=== PATIENT | female | born 1985 | race Caucasian/White ===

== ENCOUNTER 2020-05-16 11:57 | Inpatient (IN) | payer OTHER ==
--- NOTE | 2020-05-16 12:18 | BHS.RME ---
Substance Use & Tx History - Substance Use History Alcohol Substance amount: 1 litre of vodak Frequency of use: Daily Substance route: Oral Date of Last Use: 05/15/20 Heroin Substance amount: 5 bags Frequency of use: Less than 3 times per week Substance route: Injection (ex: intravenous or skin popping) Date of Last Use: 05/09/20 - Last Treatment Date of last treatment: [place] Where was last treatment: Detox Physical/Psych/Mental Status - Behavior Eye Contact: Normal - Cooperativeness Cooperativeness: Cooperative - Thinking Thought Processes: Logical Thought content: Future oriented - Physical Health Problems Is patient presently having any pain?: No Does patient presently have any injuries (include location): No Does patient currently have a fever: No CIWA Nausea/Vomitin Muscle Tremors: 3 Anxiety: 2 Agitation: 3 Paroxysmal Sweats: 1-Minimal Palms Moist Orientation: 0-Oriented Tacttile Disturbances: 1-Very Mild Itch/Numbness Auditory Disturbances: 0-None Visual Disturbances: 0-None Headache: 2-Mild CIWA-Ar Total Score: 15
--- NOTE | 2020-05-16 12:39 | HP ---
CIWA Score Nausea/Vomitin Muscle Tremors: 3 Anxiety: 2 Agitation: 3 Paroxysmal Sweats: 1-Minimal Palms Moist Orientation: 0-Oriented Tacttile Disturbances: 1-Very Mild Itch/Numbness Auditory Disturbances: 0-None Visual Disturbances: 0-None Headache: 2-Mild CIWA-Ar Total Score: 15 - Admission Criteria OASAS Guidelines: Admission for Medically Managed Detox: Requires at least one of the followin. CIWA greater than 12 2. Seizures within the past 24 hours 3. Delirium tremens within the past 24 hours 4. Hallucinations within the past 24 hours 5. Acute intervention needed for co occurring medical disorder 6. Acute intervention needed for co occurring psychiatric disorder 7. Severe withdrawal that cannot be handled at a lower level of care (continued vomiting, continued diarrhea, abnormal vital signs) requiring intravenous medication and/or fluids 8. Admitting History and Physical - Admission Chief Complaint: i need help to stop drinking alcohol History of Present Illness: this 34 years old female with alcohol dependence,heroin abused,mmtp 40 mgs/day,seen in [place] last night receiving librium,zyprexa and seroquel,clear to come in for detox,unable to verify methadone program denied suicidal,denied homicidal History Source: Patient Limitations to Obtaining History: No Limitations - Past Medical History ...LMP: 10/06/19 ...: No Psych: Yes: Addictions, Bipolar, Depression - Smoking History Smoking history: Never smoked - Alcohol/Substance Use Hx Alcohol Use: Yes History of Substance Use: reports: Heroin - Social History Usual Living Arrangement: Yes: With Significant Other Do you think of yourself as: Straight/Heterosexual ADL: Support Services Occupation: unemployed History of Recent Travel: No Other 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,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,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 Admission ROS [facility] - [facility] Chief Complaint: i need help to stop drinking alcohol and using drug Allergies/Adverse Reactions: Allergies Allergy/AdvReac Type Severity Reaction Status Date / Time haloperidol [From Haldol] Allergy Verified 05/16/20 12:46 History of Present Illness: this 34 years old female with alcohol dependence,heroin abused,on methadone maintenance 40 mgs/day, last medicated not sure stated 3 days ago, seen in [facility] yesterday ,clear to come in for detox last detox 2016 in [place] denied suicidal and homicidal at this present time living with other significant,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 Loss EENT: reports: Nose Congestion Respiratory: reports: No Symptoms reported Cardiac: reports: No Symptoms Reported GI: reports: Nausea, Poor Appetite, Abdominal cramping : reports: No Symptoms Reported Musculoskeletal: reports: Back Pain, Muscle Pain Integumentary: reports: Dryness Neuro: reports: Headache, Tremors Endocrine: reports: No Symptoms Reported Hematology: reports: No Symptoms Reported Psychiatric: reports: No Sypmtoms Reported, Judgement Intact, Mood/Affect Appropiate, Orientated x3, other (bipolar disorder depression) Patient History - Patient Medical History Hx Anemia: No Hx Asthma: No Hx Chronic Obstructive Pulmonary Disease (COPD): No Hx Cancer: No Hx Cardiac Disorders: No Hx Congestive Heart Failure: No Hx Hypertension: No Hx Hypercholesterolemia: No Hx Pacemaker: No HX Cerebrovascular Accident: No Hx Seizures: No Hx Dementia: No Hx Diabetes: No Hx Gastrointestinal Disorders: No Hx Liver Disease: No Hx Genitourinary Disorders: No Hx Sexually Transmitted Disorders: No Hx Renal Disease (ESRD): No Hx Thyroid Disease: No Hx Human Immunodeficiency Virus (HIV): No (last 2009 negative) Hx Hepatitis C: No Hx Depression: Yes Hx Suicide Attempt: Yes ([place] 5 years ago) Hx Bipolar Disorder: Yes Hx Schizophrenia: No Other Medical History: denied suicidal,denied homicidal - Patient Surgical History Past Surgical History: No - PPD History Previous Implant?: Yes Documented Results: Negative w/o proof Implanted On Prior R Admission?: No PPD to be Administered?: Yes - Reproductive History Patient is a Female of Child Bearing Age (11 -55 yrs old): Yes Last Menstrual Period: 10/06/19 Patient : No - Smoking Cessation Smoking history: Never smoked - Substance & Tx. History Hx Alcohol Use: Yes Substance Use Type: Alcohol, Heroin Hx Substance Use Treatment: Yes (2016 [facility] ) - Substances abused Alcohol Substance route: Oral Frequency: Daily Amount used: 1 litre of vodka Age of first use: 14 Date of last use: 05/15/20 Heroin Substance route: Injection Frequency: 3-6 times per week Amount used: 5 bags Age of first use: 14 Date of last use: 05/13/20 Admission Physical Exam [facility] - Vital Signs Vital Signs: t 98,p 104,r 18,bp 142/94,wyatt 0.00,pulse ox 100% - Physical General Appearance: Yes: Moderate Distress, Tremorous, Irritable, Sweating, Anxious HEENTM: Yes: Normal ENT Inspection, ELVIS, Pharynx Normal Respiratory: Yes: Within Normal Limits, Lungs Clear, Normal Breath Sounds Neck: Yes: Within Normal Limits, Supple, Trachea in good position Breast: Yes: Breast Exam Deferred Cardiology: Yes: Within Normal Limits, Regular Rhythm, Regular Rate, S1, S2 Abdominal: Yes: Within Normal Limits, Normal Bowel Sounds, Non Tender, Flat, Sof t Genitourinary: Yes: Within Normal Limits Back: Yes: Muscle Spasm Musculoskeletal: Yes: Back pain, Muscle Pain Extremities: Yes: Normal Range of Motion, Tremors Neurological: Yes: 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 NML intact, Alert, Motor Strength 5/5 Integumentary: Yes: Dry Lymphatic: Yes: Within Normal Limits - Diagnostic (1) Alcohol dependence with uncomplicated withdrawal Current Visit: Yes Status: Acute (2) Heroin abuse Current Visit: Yes Status: Acute (3) Methadone maintenance therapy patient Current Visit: Yes Status: Acute (4) Bipolar disorder Current Visit: Yes Status: Acute (5) Depression Current Visit: Yes Status: Acute (6) Dehydration Current Visit: Yes Status: Acute Cleared for Admission [facility] - Detox or Rehab [facility] Level of Care: Medically Managed Detox Regimen/Protocol: Librium Inpatient Rehab Admission - Rehab Decision to Admit Inpatient rehab admission?: No
[2020-05-16] MEDS ORDERED: ACETAMINOPHEN 325 MG TABLET (FP) PO PRN ×2 (13:11)
[2020-05-16] MEDS ORDERED: MAGNESIUM CITRATE 300 ML BOTTLE PO PRN (13:11)
[2020-05-16] MEDS ORDERED: MAG HYDROX/AL HYDROX/SIMETH 30 ML UNIT-DOSE CUP PO PRN (13:11)
[2020-05-16] MEDS ORDERED: BISMUTH SUBSALICYLATE 524 MG/30 ML UD PO PRN (13:11)
[2020-05-16] MEDS ORDERED: MAGNESIUM HYDROX 2400MG/30ML ORAL SUSPENSION 30 ML CUP PO PRN (13:11)
[2020-05-16] MEDS ORDERED: MENTHOL/PHENOL 1 EACH UD MM PRN (13:11)
[2020-05-16] MEDS ORDERED: IBUPROFEN 400 MG TABLET (FP) PO PRN (13:11)
[2020-05-16 13:24] VITALS: BMI 16.0
[2020-05-16] MEDS ORDERED: QUEtiapine FUMARATE 50 MG TABLET PO ONE (13:43)
[2020-05-16] MEDS ORDERED: METHADONE HCL 10 MG TABLET PO ONE (13:45)
[2020-05-16] MEDS ORDERED: ONDANSETRON *ODT* 4 MG TABLET SL ONE (13:45)
--- NOTE | 2020-05-16 14:05 | CONSULT ---
[facility] Psychiatric Consult - Data Date of interview: 05/16/20 Admission source: [facility] Identifying data: Patient is a 34 year old single female, without children, unemployed, domiciled, and is supported by food stamps. This is one of multiple admissions for patient. Patient admitted to for alcohol dependence. Substance Abuse History: Substance & Tx. History. Hx Alcohol Use: Yes. Substance Use Type: Alcohol, Heroin. Hx Substance Use Treatment: Yes ([address] [place] [address]). - Substances abused. Alcohol. Substance route: Oral. Frequency: Daily. Amount used: 1 litre of vodka. Age of first use: 14. Date of last use: 05/15/20. Heroin. Substance route: Injection. Frequency: 3-6 times per week. Amount used: 5 bags. Age of first use: 14. Date of last use: 05/13/20 Medical History: denies. Psychiatric History: Patient seen in [facility] this afternoon due to reporting suicidal ideation while at [facility] yesterday. Patient's first psychiatric contact was at 16 years of age after she was admitted to a psychiatric unit in [facility] due to mood instability (manic behavior). She was diagnosed with Bipolar I disorder and treated with psychotropic medications. Ms. Caro reports additional hospitalizations at [facility] [place] + at facilities in [facility]. Ms. Caro most recent psychiatric hospitalization was approximately two years ago at a facility in [facility] due to mood instability. History of one suicide attempt via cutting at 15 years of age. Patient states that she is currently provided with outpatient psychiatric care at the [facility] and is prescribed Zyprexa 15mg HS + Seroquel 100mg + [place] 300mg BID. Reports not taking lithium for several weeks. Patient received zyprexa and seroquel at [facility] yesterday alth ough doses were not printed on discharge sheet ( patient states she received zyprexa 15mg HS + Seroquel 100mg HS). At present, Ms. Caro presents as restless and was reported by staff in [facility] that patient was highly agitated earlier. Patient denies suicidal/ homicidal ideation. Physical/Sexual Abuse/Trauma History: Not discussed. Mental Status Exam - Mental Status Exam Alert and Oriented to: Time, Place, Person Cognitive Function: Good Patient Appearance: Well Groomed Mood: Withdrawn, Anxious Affect: Mood Congruent Patient Behavior: Cooperative Speech Pattern: Appropriate Voice Loudness: Normal Thought Process: Goal Oriented Hallucinations: Denies Suicidal Ideation: Denies Homicidal Ideation: Denies Insight/Judgement: Poor Sleep: Poorly Appetite: Fair Muscle strength/Tone: Normal Gait/Station: Normal Psychiatric Findings - Problem List ([place] 1, 2,3) (1) Substance induced mood disorder Status: Acute (2) Alcohol dependence with uncomplicated withdrawal Status: Chronic (3) Bipolar disorder Status: Chronic (4) Methadone maintenance therapy patient Status: Chronic - Initial Treatment Plan Initial Treatment Plan: Psychoeducation provided. Detoxification in progress. Will order a one time dose of seroquel 50mg upon arrival to the unit due to rest lessness and irritability. Will order Zyprexa 15mg HS + Seroquel 50mg HS. Manager Department called [facility] @ [phone] but unable to reach pharmacy despite answer machine stating that pharmacy is open on Sunday from 10am-5pm. Patient not interested in resuming lithium at this time. Patient in agreement with plan. Patient requesting zyprexa and seroquel. Benefits and side effects discussed. Verbal consent given.
[2020-05-16] MEDS: chlordiazePOXIDE HCL 25 MG CAPSULE PO PRN (14:22)
[2020-05-16] MEDS: hydrOXYzine PAMOATE 25 MG CAPSULE (FP) PO SCH ×3 (14:22→22:14)
[2020-05-16] MEDS: chlordiazePOXIDE HCL 25 MG CAPSULE PO SCH ×2 (17:59→22:14)
[2020-05-16] MEDS ORDERED: OLANZapine 7.5 MG TABLET PO SCH (22:00)
[2020-05-16] MEDS: THIAMINE HCL 100 MG TABLET (FP) PO SCH (22:14)
[2020-05-16] MEDS: QUEtiapine FUMARATE 50 MG TABLET PO SCH (22:14)
[2020-05-16] MEDS ORDERED: OLANZapine 10 MG TABLET ONE (23:11)
[2020-05-16] MEDS ORDERED: OLANZapine 5 MG TABLET ONE (23:11)
[2020-05-16] MEDS: MELATONIN 5 MG TABLETS PO SCH (23:15)
[2020-05-16] MEDS: OLANZAPINE 10 MG, OLANZAPINE 5 MG PO SCH (23:15)
[2020-05-17] MEDS: hydrOXYzine PAMOATE 25 MG CAPSULE (FP) PO SCH (05:33)
[2020-05-17] MEDS: chlordiazePOXIDE HCL 25 MG CAPSULE PO SCH ×4 (05:33→22:25)
[2020-05-17] MEDS ORDERED: METHADONE HCL 10 MG TABLET PO ONE (09:44)
[2020-05-17] MEDS: PRENATAL VITAMINS W/ FOLIC ACID TABLET (FP) PO SCH (10:32)
--- NOTE | 2020-05-17 11:01 | PN ---
BHS CIWA - CIWA Score Nausea/Vomitin-No Nausea/No Vomiting Muscle Tremors: 3 Anxiety: 2 Agitation: 2 Paroxysmal Sweats: 2 Orientation: 0-Oriented Tacttile Disturbances: 0-None Auditory Disturbances: 0-None Visual Disturbances: 0-None Headache: 0-None Present CIWA-Ar Total Score: 9 BHS Progress Note (SOAP) Subjective: restless sweats chills body aches interrupted sleep Objective: 05/17/20 10:58 Vital Signs Temperature 99.5 F 05/17/20 09:05 Pulse Rate 118 H 05/17/20 09:05 Respiratory Rate 18 05/17/20 09:05 Blood Pressure 117/65 05/17/20 09:05 O2 Sat by Pulse Oximetry (%) 97 05/17/20 05:28 Laboratory Tests 05/16/20 05/16/20 12:39 14:00 POC Urine HCG, Qual Negative COVID-19 (MAL) Not detected rest of labs pending aaox3 ambulating no acute distress Assessment: 05/17/20 10:58 withdrawals Plan: continue detox increase fluids
--- NOTE | 2020-05-17 11:02 | PN ---
[facility] Progress Note Note: pt states she is on a methadone program. methadone has been verified and was last dosed on 05/06/2020. pt was on 70mg at program. Pt was made aware she will start with 30mg today and will increase by 10mg every 3 days until she reaches her final dose of 70mg. pt in agreement.
--- NOTE | 2020-05-17 11:22 | EKG ---
Test Reason : Blood Pressure : / mmHG Vent. Rate : 097 BPM Atrial Rate : 097 BPM P-R Int : 120 ms QRS Dur : 084 ms QT Int : 370 ms P-R-T Axes : 079 -46 070 degrees QTc Int : 469 ms NORMAL SINUS RHYTHM LEFT AXIS DEVIATION ABNORMAL ECG NO PREVIOUS ECGS AVAILABLE Confirmed by OXANA WEINSTEIN MD ([id number]) on 05/17/2020 11:21:30 AM Referred By: Confirmed By:OXANA WEINSTEIN MD
[2020-05-17 13:04] LABS: HEMATOCRIT 40.3 % (32.4-45.2); HEMOGLOBIN 12.9 GM/dL (10.7-15.3); MCH 28.1 pg (25.7-33.7); MCHC 32.1 g/dl (32.0-36.0); MEAN CELL VOLUME 87.5 fl (80-96); PLATELET COUNT 354 K/MM3 (134-434); RBC 4.61 M/mm3 (3.60-5.2); RDW 16.2 % (11.6-15.6); WHITE BLOOD COUNT 6.1 K/mm3 (4.0-10.0)
[2020-05-17 13:14] LABS: ALBUMIN 3.3 g/dl (3.4-5.0); BILIRUBIN,TOTAL 0.6 mg/dL (0.2-1); BLOOD UREA NITROGEN 16.4 mg/dL (7-18); CALCIUM 8.8 mg/dL (8.5-10.1); CREATININE 0.7 mg/dL (0.55-1.3); POTASSIUM 3.9 mmol/L (3.5-5.1); TOT PROT 6.8 g/dl (6.4-8.2)
[2020-05-17] MEDS ORDERED: OLANZapine 5 MG TABLET ONE (21:42)
[2020-05-17] MEDS ORDERED: OLANZapine 10 MG TABLET ONE (21:42)
[2020-05-17] MEDS: OLANZAPINE 10 MG, OLANZAPINE 5 MG PO SCH (22:25)
[2020-05-17] MEDS: QUEtiapine FUMARATE 50 MG TABLET PO SCH (22:25)
[2020-05-17] MEDS: THIAMINE HCL 100 MG TABLET (FP) PO SCH (22:26)
[2020-05-17] MEDS: MELATONIN 5 MG TABLETS PO SCH (22:27)
[2020-05-17] MEDS: chlordiazePOXIDE HCL 25 MG CAPSULE PO PRN (23:42)
[2020-05-17] MEDS: hydrOXYzine PAMOATE 25 MG CAPSULE (FP) PO PRN (23:42)
[2020-05-17] MEDS: METHOCARBAMOL 500 MG TABLET PO PRN (23:43)
[2020-05-18] MEDS: METHADONE HCL 10 MG TABLET PO SCH (06:04)
[2020-05-18] MEDS: chlordiazePOXIDE HCL 25 MG CAPSULE PO SCH ×4 (06:04→23:33)
[2020-05-18] MEDS: PRENATAL VITAMINS W/ FOLIC ACID TABLET (FP) PO SCH (10:07)
--- NOTE | 2020-05-18 10:58 | PN ---
S CIWA - CIWA Score Nausea/Vomitin-No Nausea/No Vomiting Muscle Tremors: 2 Anxiety: 1-Mildly Anxious Agitation: 1-Slight > Activity Paroxysmal Sweats: 2 Orientation: 0-Oriented Tacttile Disturbances: 0-None Auditory Disturbances: 0-None Visual Disturbances: 0-None Headache: 0-None Present CIWA-Ar Total Score: 6 BHS Progress Note (SOAP) Subjective: restless sweats agitation interrupted sleep Objective: 05/18/20 10:57 Vital Signs Temperature 98.9 F 05/18/20 08:50 Pulse Rate 110 H 05/18/20 08:50 Respiratory Rate 18 05/18/20 08:50 Blood Pressure 125/71 05/18/20 08:50 O2 Sat by Pulse Oximetry (%) 99 05/18/20 07:13 Laboratory Tests 05/16/20 05/16/20 05/17/20 12:39 14:00 07:55 WBC RBC Hgb Hct MCV MCH MCHC RDW Plt Count MPV Sodium Potassium Chloride Carbon Dioxide Anion Gap BUN Creatinine Est GFR (CKD-EPI)AfAm Est GFR (CKD-EPI)NonAf Random Glucose Calcium Total Bilirubin AST ALT Alkaline Phosphatase Total Protein Albumin POC Urine HCG, Qual Negative Syphilis Serology Non-reactive COVID-19 (MAL) Not detected HIV Ag/Ab Combo Qual 05/17/20 05/17/20 05/17/20 07:55 07:55 07:55 WBC 6.1 RBC 4.61 Hgb 12.9 Hct 40.3 MCV 87.5 MCH 28.1 MCHC 32.1 RDW 16.2 H Plt Count 354 MPV 8.0 Sodium 140 Potassium 3.9 Chloride 104 Carbon Dioxide 29 Anion Gap 7 L BUN 16.4 Creatinine 0.7 Est GFR (CKD-EPI)AfAm 129.19 Est GFR (CKD-EPI)NonAf 111.47 Random Glucose 71 L Calcium 8.8 Total Bilirubin 0.6 AST 18 ALT 33 Alkaline Phosphatase 172 H Total Protein 6.8 Albumin 3.3 L POC Urine HCG, Qual Syphilis Serology COVID-19 (MAL) HIV Ag/Ab Combo Qual Negative aaox3 ambulating no acute distress Assessment: 05/18/20 10:57 withdrawals Plan: continue detox
[2020-05-18] MEDS ORDERED: OLANZapine 10 MG TABLET ONE (20:43)
[2020-05-18] MEDS ORDERED: OLANZapine 5 MG TABLET ONE (20:43)
[2020-05-18] MEDS: OLANZAPINE 10 MG, OLANZAPINE 5 MG PO SCH (21:22)
[2020-05-18] MEDS: THIAMINE HCL 100 MG TABLET (FP) PO SCH (21:22)
[2020-05-18] MEDS: MELATONIN 5 MG TABLETS PO SCH (21:23)
[2020-05-18] MEDS: QUEtiapine FUMARATE 50 MG TABLET PO SCH (21:23)
[2020-05-19] MEDS ORDERED: chlordiazePOXIDE HCL 10 MG CAPSULE PO PRN
[2020-05-19] MEDS: METHADONE HCL 10 MG TABLET PO SCH (05:36)
[2020-05-19] MEDS: chlordiazePOXIDE HCL 10 MG CAPSULE PO SCH ×4 (05:36→22:01)
[2020-05-19] MEDS ORDERED: METHADONE HCL 40 MG DISPERSABLE TABLET PO SCH (06:00)
[2020-05-19] MEDS: PRENATAL VITAMINS W/ FOLIC ACID TABLET (FP) PO SCH (10:19)
--- NOTE | 2020-05-19 11:44 | PN ---
S CIWA - CIWA Score Nausea/Vomitin-No Nausea/No Vomiting Muscle Tremors: 2 Anxiety: 1-Mildly Anxious Agitation: 1-Slight > Activity Paroxysmal Sweats: No Perspiration Orientation: 0-Oriented Tacttile Disturbances: 0-None Auditory Disturbances: 0-None Visual Disturbances: 0-None Headache: 0-None Present CIWA-Ar Total Score: 4 BHS Progress Note (SOAP) Subjective: feeling better sweats restless Objective: 05/19/20 11:43 Vital Signs Temperature 98.5 F 05/19/20 08:47 Pulse Rate 105 H 05/19/20 08:47 Respiratory Rate 18 05/19/20 08:47 Blood Pressure 115/65 05/19/20 08:47 O2 Sat by Pulse Oximetry (%) 100 05/19/20 08:47 aaox3 ambulating no acute distress Assessment: 05/19/20 11:44 withdrawals Plan: continue detox
[2020-05-19] MEDS ORDERED: OLANZapine 10 MG TABLET ONE (21:32)
[2020-05-19] MEDS ORDERED: OLANZapine 5 MG TABLET ONE (21:32)
[2020-05-19] MEDS: QUEtiapine FUMARATE 50 MG TABLET PO SCH (22:01)
[2020-05-19] MEDS: OLANZAPINE 10 MG, OLANZAPINE 5 MG PO SCH (22:01)
[2020-05-19] MEDS: THIAMINE HCL 100 MG TABLET (FP) PO SCH (22:02)
[2020-05-19] MEDS: MELATONIN 5 MG TABLETS PO SCH (22:02)
[2020-05-20] MEDS: chlordiazePOXIDE HCL 10 MG CAPSULE PO SCH ×2 (07:00→17:58)
[2020-05-20] MEDS: METHADONE HCL 40 MG DISPERSABLE TABLET PO SCH (07:00)
[2020-05-20] MEDS: PRENATAL VITAMINS W/ FOLIC ACID TABLET (FP) PO SCH (09:57)
[2020-05-20] MEDS: METHOCARBAMOL 500 MG TABLET PO PRN (09:57)
[2020-05-20] MEDS: hydrOXYzine PAMOATE 25 MG CAPSULE (FP) PO PRN ×2 (12:31→19:05)
--- NOTE | 2020-05-20 14:13 | PN ---
S CIWA - CIWA Score Nausea/Vomitin-No Nausea/No Vomiting Muscle Tremors: 1-None Visible, but [place] Anxiety: 1-Mildly Anxious Agitation: 1-Slight > Activity Paroxysmal Sweats: No Perspiration Orientation: 0-Oriented Tacttile Disturbances: 0-None Auditory Disturbances: 0-None Visual Disturbances: 0-None Headache: 0-None Present CIWA-Ar Total Score: 3 BHS Progress Note (SOAP) Subjective: headache the tylenol nor motrin is helping my headaches sweats anxiety Objective: 05/20/20 14:11 Vital Signs Temperature 98.0 F 05/20/20 08:52 Pulse Rate 102 H 05/20/20 08:52 Respiratory Rate 16 05/20/20 08:52 Blood Pressure 117/61 05/20/20 08:52 O2 Sat by Pulse Oximetry (%) 98 05/20/20 08:52 aaox3 ambulating no acute distress Assessment: 05/20/20 14:11 withdrawals Plan: continue detox cold compress ordered prn to apply to head or neck imitrex 25mg x one ordered d/c in am
[2020-05-20] MEDS ORDERED: SUMAtriptan SUCCINATE 25 MG TABLET PO ONE (15:00)
[2020-05-20 17:43] LABS: EPI CELLS 25 /uL (0-25.1); HYALINE CASTS 0 /uL (0-3.1); URINE APPEARANCE CLEAR; URINE BACTERIA 170 /uL (0-1359); URINE BILIRUBIN NEGATIVE (NEGATIVE); URINE COLOR YELLOW; URINE GLUCOSE (UA) NEGATIVE (NEGATIVE); URINE KETONE NEGATIVE (NEGATIVE); URINE LEUK ESTERASE TRACE (NEGATIVE); URINE NITRITE NEGATIVE (NEGATIVE); URINE PROTEIN NEGATIVE (NEGATIVE); URINE RBC 4 /uL (0-23.9); URINE UROBILINOGEN 0.2 mg/dL (0.2-1.0); URINE WBC 22 /uL (0-25.8)
[2020-05-20] MEDS ORDERED: OLANZapine 10 MG TABLET ONE (21:33)
[2020-05-20] MEDS ORDERED: OLANZapine 5 MG TABLET ONE (21:34)
[2020-05-20] MEDS: QUEtiapine FUMARATE 50 MG TABLET PO SCH (22:38)
[2020-05-20] MEDS: MELATONIN 5 MG TABLETS PO SCH (22:38)
[2020-05-20] MEDS: THIAMINE HCL 100 MG TABLET (FP) PO SCH (22:38)
[2020-05-20] MEDS: OLANZAPINE 10 MG, OLANZAPINE 5 MG PO SCH (22:38)
[2020-05-21] MEDS ORDERED: chlordiazePOXIDE HCL 10 MG CAPSULE PO ONE (05:00)
[2020-05-21] MEDS: METHADONE HCL 40 MG DISPERSABLE TABLET PO SCH (05:39)
--- NOTE | 2020-05-21 08:50 | DS ---
[facility] Detox Discharge Summary Admission Date: 05/16/20 Discharge Date: 05/21/20 - History Present History: Alcohol Dependence, MMTP - Physical Exam Results Vital Signs: Vital Signs Temperature 97.8 F 05/21/20 05:25 Pulse Rate 108 H 05/21/20 05:25 Respiratory Rate 16 05/21/20 05:25 Blood Pressure 125/66 05/21/20 05:25 O2 Sat by Pulse Oximetry (%) 96 05/21/20 05:25 Pertinent Admission Physical Exam Findings: Vital Signs Temperature 97.8 F 05/21/20 05:25 Pulse Rate 108 H 05/21/20 05:25 Respiratory Rate 16 05/21/20 05:25 Blood Pressure 125/66 05/21/20 05:25 O2 Sat by Pulse Oximetry (%) 96 05/21/20 05:25 Laboratory Tests 05/16/20 05/16/20 05/17/20 12:39 14:00 07:55 WBC RBC Hgb Hct MCV MCH MCHC RDW Plt Count MPV Sodium Potassium Chloride Carbon Dioxide Anion Gap BUN Creatinine Est GFR (CKD-EPI)AfAm Est GFR (CKD-EPI)NonAf Random Glucose Calcium Total Bilirubin AST ALT Alkaline Phosphatase Total Protein Albumin Urine Color Urine Appearance Urine pH Ur Specific [place] Urine Protein Urine Glucose (UA) Urine Ketones Urine Blood Urine Nitrite Urine Bilirubin Urine Urobilinogen Ur Leukocyte Esterase Urine WBC (Auto) Urine RBC (Auto) Urine Casts (Auto) U Epithel Cells (Auto) Urine Bacteria (Auto) POC Urine HCG, Qual Negative Syphilis Serology Non-reactive COVID-19 (MAL) Not detected HIV Ag/Ab Combo Qual 05/17/20 05/17/20 05/17/20 07:55 07:55 07:55 WBC 6.1 RBC 4.61 Hgb 12.9 Hct 40.3 MCV 87.5 MCH 28.1 MCHC 32.1 RDW 16.2 H Plt Count 354 MPV 8.0 Sodium 140 Potassium 3.9 Chloride 104 Carbon Dioxide 29 Anion Gap 7 L BUN 16.4 Creatinine 0.7 Est GFR (CKD-EPI)AfAm 129.19 Est GFR (CKD-EPI)NonAf 111.47 Random Glucose 71 L Calcium 8.8 Total Bilirubin 0.6 AST 18 ALT 33 Alkaline Phosphatase 172 H Total Protein 6.8 Albumin 3.3 L Urine Color Urine Appearance Urine pH Ur Specific [place] Urine Protein Urine Glucose (UA) Urine Ketones Urine Blood Urine Nitrite Urine Bilirubin Urine Urobilinogen Ur Leukocyte Esterase Urine WBC (Auto) Urine RBC (Auto) Urine Casts (Auto) U Epithel Cells (Auto) Urine Bacteria (Auto) POC Urine HCG, Qual Syphilis Serology COVID-19 (MAL) HIV Ag/Ab Combo Qual Negative 05/20/20 14:35 WBC RBC Hgb Hct MCV MCH MCHC RDW Plt Count MPV Sodium Potassium Chloride Carbon Dioxide Anion Gap BUN Creatinine Est GFR (CKD-EPI)AfAm Est GFR (CKD-EPI)NonAf Random Glucose Calcium Total Bilirubin AST ALT Alkaline Phosphatase Total Protein Albumin Urine Color Yellow Urine Appearance Clear Urine pH 5.0 Ur Specific [place] 1.009 L Urine Protein Negative Urine Glucose (UA) Negative Urine Ketones Negative Urine Blood Negative Urine Nitrite Negative Urine Bilirubin Negative Urine Urobilinogen 0.2 Ur Leukocyte Esterase Trace Urine WBC (Auto) 22 Urine RBC (Auto) 4 Urine Casts (Auto) 0 U Epithel Cells (Auto) 25 Urine Bacteria (Auto) 170 POC Urine HCG, Qual Syphilis Serology COVID-19 (MAL) HIV Ag/Ab Combo Qual aaox3 ambulating no acute distress lungs CTA - Treatment Hospital Course: Detox Protocol Followed, Detoxed Safely, Responded well, Discharged Condition Good, Rehab Referral Accepted - Medication Discharge Medications: Ambulatory Orders [place] Carbonate [Lithobid] 300 mg PO DAILY 05/16/20 Mirtazapine [Remeron -] 15 mg PO DAILY 05/16/20 Olanzapine [Zyprexa -] 15 mg PO DAILY 05/16/20 Quetiapine Fumarate [Seroquel -] 100 mg PO DAILY 05/16/20 - Diagnosis (1) Alcohol dependence with uncomplicated withdrawal Current Visit: Yes Status: Chronic (2) Depression Current Visit: Yes Status: Acute (3) Heroin abuse Current Visit: Yes Status: Acute (4) Substance induced mood disorder Current Visit: Yes Status: Acute (5) Bipolar disorder Current Visit: Yes Status: Chronic (6) Methadone maintenance therapy patient Current Visit: Yes Status: Chronic - AMA Did Patient Leave Against Medical Advice: No
[2020-05-21 09:57] VITALS: BP 120/74; PULSE 102; TEMP 97.1
== END 2020-05-21 10:33 | disposition home or self-care (01) | DRG 773 ==
LOC: YASAS 11:57 → Y6N 13:01
PROVIDERS: ADMIT Allergy & Immunology; ATTEND Allergy & Immunology
PROC: HZ2ZZZZ Detoxification Services for Substance Abuse Treatment (ICD-10-PCS; principal; 2020-05-16)
DX: F10.230 Alcohol dependence with withdrawal, uncomplicated (principal); F11.20 Opioid dependence, uncomplicated; F19.24 Other psychoactive substance dependence with psychoactive substance-induced mood disorder; F31.9 Bipolar disorder, unspecified; E86.0 Dehydration; R63.4 Abnormal weight loss; Z68.1 Body mass index [BMI] 19.9 or less, adult; Z91.5 Personal history of self-harm; Z88.8 Allergy status to other drugs, medicaments and biological substances; Z56.0 Unemployment, unspecified
CPT/HCPCS: 36415; 80053; 81003; 81025; 85027; 86780; 87389; 93005; 93010; Q0162; U0003